=== PATIENT | female | born 1970 | race African-American/Black ===

== ENCOUNTER → 2017-02-26 | Outpatient (CLI) | payer OTHER ==
[~2017-02-26] MED LIST: ACID CONTROL20 MG; ATIVAN0.5 MG PO; BACTRIM DS TAB1 EACH PO; CLEOCIN HCL300 MG PO; DIOVAN HCT 3201 EACH PO; FLONASE 0.05%50 MCG NS; FUROSEMIDE PO; GLUCOPHAGE500 MG PO; LEXAPRO20 MG PO; MEDROLDOSEPACK PO; NORCO 5-325 TA1 EACH PO; PROVENTIL HFA6.7 G1; SYMBICORT160 MCG/4.; TESSALON PERLE100 MG PO
== END ==
LOC: RAD 11:30
DX: J45.909 Unspecified asthma, uncomplicated (principal)